=== PATIENT | male | born 1955 | race Caucasian/White ===

== ENCOUNTER 2019-12-12 13:01 | Observation (INO) ==
[2019-12-12] MEDS ORDERED: ASPIRIN PO ONE (13:04)
[2019-12-12] MEDS ORDERED: LANOXIN ONE (13:15)
[2019-12-12] MEDS ORDERED: NS 1,000 ML IV ONE (13:22)
[2019-12-12] MEDS ORDERED: LANOXIN IV ONE (13:23)
[2019-12-12 13:36] LABS: BASO# 0.04 X1000 (0.0-0.2); BASO% 0.3 % (0.0-0.8); EOS# 0.17 X1000 (0.0-0.7); EOS% 1.1 % (0.0-10.0); HEMATOCRIT 46.3 % (42.0-52.0); HEMOGLOBIN 15.1 g/dL (14.0-18.0); IMM GRAN# 0.03 X1000 (0.0-0.04); IMM GRAN% 0.2 % (0.0-0.5); LYMPH# 2.15 X1000 (1.2-3.4); LYMPH% 14.1 % (20.5-51.1); MCH 31.9 PG (27-31); MCHC 32.6 g/dL (33-37); MCV 97.7 FL (81-99); MONO# 1.11 X1000 (0.11-0.59); MONO% 7.3 % (1.7-9.3); MPV 10.9 FL (7.4-10.4); NEUT# 11.72 X1000 (1.4-6.5); PLT 229 X1000 (130-400); RBC 4.74 XMIL (4.7-6.1); WBC 15.22 X1000 (4.8-10.8)
[2019-12-12 13:51] LABS: AGAP 11; ALBUMIN 4.2 g/dL (3.5-5.0); ALKALINE PHOSPHATASE 54 U/L (32-122); BUN 25 mg/dL (8-22); CALCIUM 9.3 mg/dL (8.8-10.2); CHLORIDE 101 mmol/L (98-107); CK PROFILE 75 U/L (24-204); COSMO 286; CREATININE 1.2 mg/dL (0.7-1.2); ESTIMATED GFR > 60; GLUCOSE 96 mg/dL (70-104); GOT 16 U/L (10-34); GPT 13 U/L (10-44); POTASSIUM 4.2 mmol/L (3.5-5.1); SODIUM 141 mmol/L (136-145); TCO2 29 mmol/L (25-35)
--- NOTE | 2019-12-12 14:14 | Diag Imaging Result Doc PS360 ---
EXAM: CHEST-PORTABLE HISTORY: chest pain TECHNIQUE: Single view COMPARISON: 12/18/2015 FINDINGS: The lungs are well expanded. The heart is not enlarged. The vessels are not distended. There are increased interstitial markings in the right upper lobe. No effusion identified. IMPRESSION: Small right upper lobe pneumonia Electronically signed by Wing Menjivar 12/12/2019 2:12 PM
[2019-12-12] MEDS ORDERED: ROCEPHIN 1 GM in NS 50 ML IV ONE (14:30)
--- NOTE | 2019-12-12 15:34 | EKG Report ---
Test Performed on : 12/12/2019 1:41:48 PM Test Reason : chest pain Blood Pressure : / mmHG Vent. Rate : 057 BPM Atrial Rate : 057 BPM P-R Int : 246 ms QRS Dur : 116 ms QT Int : 432 ms P-R-T Axes : 107 -10 008 degrees QTc Int : 420 ms Sinus bradycardia. with 1st degree AV block. Incomplete right bundle branch block Possible Lateral infarct (cited on or before 17-JUN-2010) Inferior infarct (cited on or before 17-JUN-2010) Abnormal ECG When compared with ECG of 12-DEC-2019 13:08, (Unconfirmed) NV interval has increased Vent. rate has decreased BY [address] no longer depressed in Anterior leads T wave inversion no longer evident in Anterior leads Unconfirmed Result
--- NOTE | 2019-12-12 15:44 | EKG Report ---
Test Performed on : 12/12/2019 1:08:47 PM Test Reason : ER Blood Pressure : / mmHG Vent. Rate : 151 BPM Atrial Rate : 131 BPM P-R Int : 000 ms QRS Dur : 116 ms QT Int : 324 ms P-R-T Axes : 000 -04 -17 degrees QTc Int : 513 ms Supraventricular tachycardia. Incomplete right bundle branch block Lateral infarct (cited on or before 17-JUN-2010) Inferior infarct (cited on or before 17-JUN-2010) Abnormal ECG When compared with ECG of 18-DEC-2015 15:00, Vent. rate has increased BY [address] now depressed in Anterior leads Inverted T waves have replaced nonspecific T wave abnormality in Inferior leads Nonspecific T wave abnormality no longer evident in Lateral leads Unconfirmed Result
[2019-12-12] MEDS ORDERED: ZOFRAN IV PRN (15:48)
[2019-12-12] MEDS ORDERED: TYLENOL PO PRN (15:48)
[2019-12-12] MEDS ORDERED: ROCEPHIN 1 GM in NS 50 ML IV SCH (15:48)
[2019-12-12] MEDS ORDERED: XOPENEX NEB INH PRN (15:48)
--- NOTE | 2019-12-12 15:49 | HISTORY AND PHYSICAL ---
PRIMARY CARE PROVIDER: Dr. Stearns. HISTORY OF PRESENT ILLNESS: Mr. Parker is a 64-year-old gentleman who carries a past medical history of CVA and an KS, status post 2 stents 10 years ago that required him to have a prolonged course in the hospital. He had a tracheostomy with removal as well as a PEG tube with removal. Since that time, he has been on a pureed diet, and is supposed to be drinking Ensure. However, due to the cost, he only drinks it when it is given to him by his PCP. 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 He has had an eye infection in that n eye for almost 2 years. He is on numerous eyedrops as well as other medications. He is also on acyclovir for that. There is a reported history of COPD, however, the patient denies any. He is not on any home O2. He was a remote smoker and quit years ago. Hyperlipidemia reported to the ED with complaints of chest pain 30 minutes prior to his arrival. Upon arrival to the ED, they reported he was in atrial fibrillation with RVR. He was given IV dose of digoxin. Spoke with Dr. Turner. The patient will be transferred to [facility]. He was also found to have a small right upper lobe pneumonia. He reports no cough than his usual. No fever. No chills. No shortness of breath. He alternates this between constipation and diarrhea, that is his norm. His pain is currently resolved. He also reported some hypotension prior to his arrival. He did have a blood pressure 84/59. Again, he will be transferred to [facility] and PCV to follow up with Dr. Turner. We will continue treatment for his pneumonia. PAST MEDICAL HISTORY: 1. Reported COPD. Patient denies. 2. Coronary artery disease status post stents. 3. CVA 10 years ago. 4. Hyperlipidemia. 5. 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 PAST SURGICAL HISTORY: 1. Trach placement and removal after his KS and CVA that occurred at the same time 10 years ago, status post 2 stents, status post PEG insertion and removal at the same time. 2. Right cornea transplant from his daughter who is . 3. Cholecystectomy. SOCIAL HISTORY: Remote tobacco history. No alcohol, tobacco, or illicit drug use. He is currently on a pureed diet, supposed to be drinking Ensure, likes strawberry and vanilla. ALLERGIES: No known drug allergies. MEDICATIONS: Home medications are being compiled. He is on Eliquis, Flexeril, Prilosec, acyclovir, numerous eyedrops and cream, statin, metoprolol, lisinopril, and Flomax. REVIEW OF SYSTEMS: Twelve-point review of systems completely negative except for those mentioned in HPI. PHYSICAL EXAMINATION: VITAL SIGNS: Temperature is 98. Current heart rate 68, respirations 16, blood pressure 100/73, and O2 is 100% on room air. GENERAL: Mr. Parker is a pleasant 64-year-old gentleman who is sitting in the stretcher in no acute distress. HEENT: Atraumatic, normocephalic. PERRL. He does have right eye infection. CARDIOVASCULAR: S1, S2 appreciated. No murmurs, gallops, or rubs noted. RESPIRATORY: Lung sounds relatively clear. No rales, rhonchi, or wheezes noted. ABDOMEN: Soft, nontender, and nondistended. Positive bowel sounds 4 quadrants. EXTREMITIES: Lower extremities negative for edema. NEUROLOGIC: No focal deficits noted. DIAGNOSTIC DATA: Chest x-ray with right upper lobe pneumonia. LABORATORY DATA: White count 15, hemoglobin and hematocrit 15 and 46, and platelet count is 229,000. Sodium 141, potassium 4.2, BUN 25, and creatinine 1.2. Blood glucose is 96. Troponin 21. ProBNP is 194. ASSESSMENT AND PLAN: 1. Chest pain rule out. 2. Reported atrial fibrillation with RVR in the ED. He was given a dose of digoxin. Currently, in sinus rhythm. He reports he is on metoprolol and Eliquis for an irregular heart rhythm. 3. Probable aspiration pneumonia, right upper lobe pneumonia. We will continue with Levaquin. Slight elevated white count at 15. Denies any fevers. He does report a cough, but did not feel it was any more than his usual. 4. Hypotension at home and upon arrival. Blood pressure came up with a L bolus. We will continue on IV fluids. 5. CVA 10 years ago as well as coronary artery disease status post KS x2. These both occurred at the same time that required him to get 2 stents. Trach insertion as well as a PEG tube. He is currently on a pureed diet. He is supposed to be drinking Ensure. He prefers strawberry and vanilla. Chocolate will make him choke. 6. Hyperlipidemia. Continue statin when verified. 7. Right corneal transplant with eye infection x2 years. Continue acyclovir and numerous drops and creams when verified. 8. Further recommendations to follow physician evaluation, laboratory and diagnostic data. Dictated by INES Mae for Pepe Magaña MD cc: MD Dr. Jinny Mujica
--- NOTE | 2019-12-12 16:00 | PROVIDER DOCUMENTATION ---
This chart was entered by Vanessa Plaza Scribe, acting as scribe for Rose Knight CRNP. HPI-Chest Pain <Elliot Khan - Last Filed: 12/12/19 14:30> - General Source: patient - History of Present Illness-CP Location: reports: other (left anterior) Chest Pain Radiation: reports: no radiation Quality of Pain: reports: sharp Severity in ED: moderate Onset/Duration: 1 hour ago Timing: gone now, intermittent Context/Activities at Onset: reports: light activity Modifying Factors: improves with: nothing Associated Symptoms: reports: shortness of breath. denies: back pain, diaphoresis, dizziness, fever/chills, nausea, vomiting Nitro Today/Relief: no nitro taken today Aspirin Treatment Today: 325 mg x 1, provided by ED Prior Chest Pain/Cardiac Workup: reports: heart attack Similar Symptoms Previously?: Yes Recently Seen Here or By Another Healthcare Provider: No (PMD dr betancourt but has not seen) <Rose Knight - Last Filed: 12/12/19 16:00> - General Chief Complaint: Chest Pain Stated Complaint: CHEST PAIN Time Seen by Provider: 12/12/19 13:07 Allergies/Adverse Reactions: Patient Allergies Allergy/AdvReac Type Severity Reaction Status Date / Time No Known Allergies Allergy Verified 08/05/18 12:58 Home Medications: Home Medication List Medication Instructions Recorded Confirmed Last Taken Type LISINOpril [Prinivil] 2.5 mg PO DAILY 08/06/13 08/05/18 07/28/14 06:00 History Metoprolol [Lopressor] 12.5 mg PO BID 09/14/13 08/05/18 07/28/14 06:00 History Atorvastatin Calcium [Lipitor] 40 mg PO QHS 12/18/15 08/05/18 12/17/15 History Apixaban [Eliquis] 5 mg PO BID 08/05/18 08/05/18 Unknown History - History of Present Illness-CP Nature of Presenting Problem: 64 yowm presents to the ed with c/o acute onset sharp intermittent CP 45 minuted [employer] with sob. he reports on exam all pain has resolved but does present with HR 145/155. pt reports he did not take his BP medication today but took all other medications (Rose Knight) Review of Systems - Adult - REVIEW OF SYSTEMS - ADULT Constitutional: denies: chills, fever Eyes: reports: no symptoms reported Ears, Nose, Mouth & Throat: reports: no symptoms reported Cardiovascular: reports: see HPI, chest pain. denies: edema, palpitations, syncope Respiratory: reports: see HPI, shortness of breath. denies: cough, wheezing Gastrointestinal: denies: abdominal pain, diarrhea, nausea, vomiting Genitourinary: reports: no symptoms reported Musculoskeletal: denies: back pain, neck pain Integumentary: reports: no symptoms reported Neurological: reports: no symptoms reported Psychiatric: reports: no symptoms reported Endocrine: reports: no symptoms reported Hematologic/Lymphatic: reports: no symptoms reported Allergic/Immunologic: reports: no symptoms reported All Other Systems: Reviewed and Negative < - Last Filed: 12/12/19 16:00> Past History - Adult - PAST MEDICAL HISTORY-ADULT Review of Records: reports: Old Records Reviewed, Nursing Assessment Review, Medications Reviewed, Social history reviewed & non-contributory. Major Childhood Illnesses: reports: denies history Cardiovascular: reports: arrhythmia (SVT), CAD, CHF, HTN, MO Respiratory: reports: pneumonia Gastrointestinal: reports: denies history Genitourinary: reports: kidney disease Musculoskeletal: reports: denies history Neurological: reports: CVA, stroke deficits (left side) Psychiatric: reports: denies history Endocrine/Immune: reports: denies history Other Conditions: reports: denies history - PRIOR SURGERIES/PROCEDURES Surgical/Procedure History: reports: cholecystectomy, other (feeding tube) - IMMUNIZATION STATUS Childhood Immunizations: See Nurse Assessment Flu Vaccine: See Nurse Assessment - FAMILY HISTORY Family History: reviewed, not pertinent - SOCIAL HISTORY Smoking: denies Substance Use: denies Living Situation: alone < C. - Last Filed: 12/12/19 16:00> Physical Exam-General - PHYSICAL EXAM-ADULT Initial Vital Signs Reviewed: Yes - CONSTITUTIONAL General Appearance: appears well, alert, no apparent distress (pt sts cp has resolved and denies pain on exam. pt is nontoxic in appearance) - EYES Eyes: PERRL/EOMI - HEAD, EARS, NOSE, MOUTH & THROAT HENMT: moist mucous membranes, other (no teeth) - NECK Neck: non-tender, full range of motion, supple, normal inspection - RESPIRATORY Respiratory: chest non-tender, lungs clear, normal breath sounds - CARDIOVASCULAR Cardiovascular: tachycardia (145) - CHEST (BREASTS) Chest/Breast: deferred - GASTROINTESTINAL (ABDOMEN) Abdominal Exam: normal bowel sounds, non tender, soft - GENITOURINARY Male Genitalia: deferred Rectal Exam: deferred Hemoccult Exam: deferred - LYMPHATIC Lymphatic: no adenopathy - MUSCULOSKELETAL Back Exam: no CVA tenderness, no vertebral tenderness Extremity: normal range of motion, non-tender, normal gait, normal inspection - SKIN Integumentary: normal turgor, warm/dry, cyanosis (in fingers) - NEUROLOGIC Neurologic: grossly normal - PSYCHIATRIC Psych/Mental Status: normal mood/affect, normal thought content, normal thought process, oriented x 3 <Rose Knight - Last Filed: 12/12/19 16:00> - HEART Score HEART Score: History: Slightly Suspicious HEART Score: ECG: Non-Specific Repolarization Disturbance/LBBB/PM HEART Score: Age: 45-65 Years HEART Score: Risk Factors for Atherosclerotic Disease: > or = 3 Risk Factors or History of Atherosclerotic Disease HEART Score: Troponin: < or = Normal Limit Total HEART Score:: 4 <Rose Knight - Last Filed: 12/12/19 16:00> Progress - PLAN OF CARE/RESULTS Result Diagrams: 12/12/19 13:13 12/12/19 13:13 <Elliot Khan - Last Filed: 12/12/19 14:30> - PLAN OF CARE/RESULTS Result Diagrams: 12/12/19 13:13 12/12/19 13:13 - REASSESSMENT Reassessment #1 Time Reassessed: 13:47 Status: improving Reassessment Comment: dr khan at bedside - EKG 1 Time of EKG reading by physician:: 13:08 EKG Read and Signed by:: Elliot Khan EKG Interpretation (*Must complete 3 of following elements*): Abnormal Rate: 151 Rhythm: supraventricular tachycardia QRS: RBB (incomplete RBB) NC Interval: normal ST Wave: normal Comments: lateral/inferior infarct, age undetermined 2 Time of EKG reading by physician:: 13:41 EKG Read and Signed by:: Elliot Khan EKG Interpretation (*Must complete 3 of following elements*): Abnormal Rate: 57 Rhythm: sinus bradycardia w/1st degree av block Nichols: normal QRS: RBB (incomplete RBB) NC Interval: normal ST Wave: normal Comments: poss lateral infarct/inferior infarct, age undetermined on both - XRAY 1 XRAY: Bilateral XRAY Study: Chest Impression: See EMR Report (IMPRESSION: Small right upper lobe pneumonia Electronically signed by Wing Menjivar 12/12/2019 2:12 PM) - CONSULTS/PCP/HOSPITALIST Notification #1 *Consult/PCP/Hospitalist*: dr austin cardio Time Discussed: 13:32 Reason/Comments: phone consult #2 Consult: dr castañeda hospitalist Consult Disposition: Will see in ED, Admit <Rose Knight - Last Filed: 12/12/19 16:00> - PLAN OF CARE/RESULTS Progress/Plan/Lab Results: Vital Signs - 8 hr 12/12/19 13:05 12/12/19 13:24 12/12/19 13:41 Temperature 98 F Pulse Rate 107 H 150 H 68 Respiratory Rate 18 17 Blood Pressure 84/59 100/73 O2 Sat by Pulse Oximetry 97 100 Laboratory Results - last 24 hr 12/12/19 12/12/19 12/12/19 13:13 13:13 13:13 WBC RBC Hgb Hct MCV MCH MCHC RDW Std Deviation Plt Count MPV Immature Gran % (Auto) Neut % (Auto) Lymph % (Auto) [place] % (Auto) Eos % (Auto) Baso % (Auto) Immature Gran # (Auto) Neut # (Auto) Lymph # (Auto) [place] # (Auto) Eos # (Auto) Baso # (Auto) PTT (Actin FS) Sodium 141 Potassium 4.2 Chloride 101 Carbon Dioxide 29 Anion Gap 11 BUN 25 H Creatinine 1.2 Estimated GFR/1.73 m2 > 60 BUN/Creatinine Ratio 21 Glucose 96 Calculated Osmolality 286 Calcium 9.3 Total Bilirubin 0.30 AST 16 ALT 13 Alkaline Phosphatase 54 Creatine Kinase 75 Troponin T High Sens 21 H Mck-L-Tquhsksuwlh Pept 194 H Total Protein 7.0 Albumin 4.2 Globulin 3.0 Albumin/Globulin Ratio 2.0 Plasma Lactate 12/12/19 12/12/19 12/12/19 13:13 13:13 13:40 WBC 15.22 H RBC 4.74 Hgb 15.1 Hct 46.3 MCV 97.7 MCH 31.9 H MCHC 32.6 L RDW Std Deviation 12.0 Plt Count 229 MPV 10.9 H Immature Gran % (Auto) 0.2 Neut % (Auto) 77.0 H Lymph % (Auto) 14.1 L [place] % (Auto) 7.3 Eos % (Auto) 1.1 Baso % (Auto) 0.3 Immature Gran # (Auto) 0.03 Neut # (Auto) 11.72 H Lymph # (Auto) 2.15 [place] # (Auto) 1.11 H Eos # (Auto) 0.17 Baso # (Auto) 0.04 PTT (Actin FS) 31.4 Sodium Potassium Chloride Carbon Dioxide Anion Gap BUN Creatinine Estimated GFR/1.73 m2 BUN/Creatinine Ratio Glucose Calculated Osmolality Calcium Total Bilirubin AST ALT Alkaline Phosphatase Creatine Kinase Troponin T High Sens Irl-P-Birelrczevc Pept Total Protein Albumin Globulin Albumin/Globulin Ratio Plasma Lactate 1.4 Orders Category Date Time Status Admit - [facility] Routine AdmDCTranf 12/12/19 15:48 Active Apply Mechanical Device [QM] ORDERED Care 12/12/19 15:48 Active Cardiac Monitoring DIRECTED Care 12/12/19 13:08 Active Elevate Head of Bed DIRECTED Care 12/12/19 15:48 Active Encourage Fluids DIRECTED Care 12/12/19 15:48 Active Intake and Output-Strict Q 8-HR ASSESS Care 12/12/19 15:48 Active NEWS Score 2-4:Order NEWS Lactate Series NOW Care 12/12/19 13:07 Active Notify MD if DIRECTED Care 12/12/19 15:48 Active Nursing- Assist w/ IS as order ORDERED Care 12/12/19 15:48 Active Nursing- MD Consult Request ROUTINE Care 12/12/19 15:48 Completed Oxygen Therapy- ED Nursing DIRECTED Care 12/12/19 13:08 Active Saline Loc DIRECTED Care 12/12/19 15:48 Active Saline Loc NOW Care 12/12/19 13:08 Active Turn, Cough and Deep Breathe Q2HR Care 12/12/19 15:48 Active Vital Signs Order Q 4-HR ASSESS Care 12/12/19 15:48 Active Z-Document. for Tele Applied ORDERED Care 12/12/19 15:48 Active MD [Physician/Provider Consults] Routine Cons 12/12/19 15:48 Ordered Heart Healthy Diet Diet 12/12/19 15:49 Active CHEST-PORTABLE [RAD] Routine Exams 12/13/19 06:00 Ordered CHEST-PORTABLE [RAD] Stat Exams 12/12/19 13:08 Completed BLOOD CULTURE [BLDCUL] Stat Lab 12/12/19 14:30 Ordered CBC WITH ELECTRONIC DIFF [HEME] Routine Lab 12/13/19 06:00 Ordered CBC WITH ELECTRONIC DIFF [HEME] Stat Lab 12/12/19 13:13 Completed CK PROFILE [SP CHEM] Q8H Lab 12/12/19 15:48 Ordered CK PROFILE [SP CHEM] Q8H Lab 12/12/19 23:48 Ordered CK PROFILE [SP CHEM] Q8H Lab 12/13/19 07:48 Ordered CK PROFILE [SP CHEM] Stat Lab 12/12/19 13:13 Completed CK TOTAL [CHEM] Q8H Lab 12/12/19 15:48 Ordered CK TOTAL [CHEM] Q8H Lab 12/12/19 23:48 Ordered CK TOTAL [CHEM] Q8H Lab 12/13/19 07:48 Ordered COMPREHENSIVE METABOLIC PANEL [CHEM] Routine Lab 12/13/19 06:00 Ordered COMPREHENSIVE METABOLIC PANEL [CHEM] Stat Lab 12/12/19 13:13 Completed LACTATE, PLASMA [CHEM] Lab 12/12/19 16:45 Uncollected LACTATE, PLASMA [CHEM] Lab 12/12/19 19:45 Uncollected LACTATE, PLASMA [CHEM] Q3H Lab 12/12/19 13:40 Completed MAGNESIUM [CHEM] Routine Lab 12/12/19 15:48 Ordered PRO B-NATRIURETIC PEPTIDE Stat Lab 12/12/19 13:13 Completed PROTIME WITH INR [COAG] Stat Lab 12/12/19 13:28 Ordered PTT [COAG] Stat Lab 12/12/19 13:13 Completed SPUTUM CULTURE WITH GRAM STAIN [RM] Routine Lab 12/12/19 15:48 Uncollected TROPONIN T HIGH SENSITIVITY Q8H Lab 12/12/19 15:48 Ordered TROPONIN T HIGH SENSITIVITY Q8H Lab 12/12/19 23:48 Ordered TROPONIN T HIGH SENSITIVITY Q8H Lab 12/13/19 07:48 Ordered TROPONIN T HIGH SENSITIVITY Stat Lab 12/12/19 13:13 Completed 0.9% Sodium Chloride Inj [Ns] 1,000 ml Med 12/12/19 15:48 Ordered IV 75 mls/hr 0.9% Sodium Chloride Inj [Ns] 1,000 ml Med 12/12/19 13:22 Discontinued IV 999 mls/hr Acetaminophen [Tylenol] Med 12/12/19 15:48 Ordered 650 mg PO Q6H PRN PRN Aspirin Med 12/12/19 13:04 Discontinued 325 mg PO NOW ONE CefTRIAXONE [Rocephin] 1 gm Med 12/12/19 14:30 Discontinued 0.9% Sodium Chloride Inj [Ns] 50 ml IV NOW CefTRIAXONE [Rocephin] 1 gm Med 12/12/19 15:48 Ordered 0.9% Sodium Chloride Inj [Ns] 50 ml IV Q24H CefTRIAXONE [Rocephin] 1 gm Med 12/13/19 14:30 Ordered 0.9% Sodium Chloride Inj [Ns] 50 ml IV Q24H Digoxin [Lanoxin] Med 12/12/19 13:23 Discontinued 250 microgm IV ONCE ONE Digoxin [Lanoxin] Med 12/12/19 13:15 Discontinued 500 microgm .ROUTE .STK-MED ONE Levalbuterol Neb [Xopenex Neb] Med 12/12/19 16:00 Ordered 0.63 mg INH RTQ6H.OH Levalbuterol Neb [Xopenex Neb] Med 12/12/19 15:48 Ordered 1.25 mg INH Q8H PRN PRN Omeprazole [Prilosec] Med 12/13/19 07:00 Ordered 20 mg PO DAILY@0700 Ondansetron [Zofran] Med 12/12/19 15:48 Ordered 4 mg IV Q4H PRN PRN Aerosol Treatments Routine Oth 12/12/19 15:48 Active Aerosol Treatments Stat Oth 12/12/19 15:48 Active Incentive Spirometer Routine Oth 12/12/19 15:48 Active Oxygen Device Stat Oth 12/12/19 13:23 Active Pulse Oximetry Routine Oth 12/12/19 15:48 Active Telemetry [OM.EQ] Routine Oth 12/12/19 15:48 Active EKG [EKG] Routine Ther 12/13/19 07:00 Ordered EKG [EKG] Stat Ther 12/12/19 13:08 Draft Echo Spec/Color Doppler Routine Ther 12/12/19 15:48 Ordered Transfer/Admit Order [TRANSFER] Routine Transfer 12/12/19 14:07 Completed Departure - Departure Certified Medical Emergency: Emergent <Elliot Khan - Last Filed: 12/12/19 14:30> - Departure Date of Disposition Decision: 12/12/19 Time of Disposition Decision: 15:25 Certified Medical Emergency: Emergent - Critical Care Note This patient required my direct & personal management of CC.: Yes Total Time (mins): 34 Critical Care Statement: This patient required my direct personal management to treat or rule out processes, the absence of which, could potentiallly result in sudden, clinically significant life or limb threatening deterioration. <Rose Knight - Last Filed: 12/12/19 16:00> - Departure DIAGNOSIS: Supraventricular tachycardia PNA (pneumonia) Qualifiers: Pneumonia type: due to unspecified organism Laterality: right Lung location: upper lobe of lung Qualified Code(s): J18.1 - Lobar pneumonia, unspecified organism Disposition: ADMITTED INPATIENT 09 Condition: Stable Attestation - Physician/ KATLYN Attestation Patient care was provided by Advanced Practice Provider:: Yes Advanced Practice Provider:: Rose Knight Advanced Practice Provider documentation review:: The Mid-level provider documentation, treatment plan and medical decision making was reviewed by the physician who agrees with all treatment and medical decision making by the MLP. The physician spent face to face time with patient:: Yes (dr khan at bedside) Advanced Practice Provider documentation review:: Supervising physician onsite and consulted in the evaluation and care of this patient. The physician did have a face to face encounter with the patient. <Rose Knight - Last Filed: 12/12/19 16:00> This chart was documented by the indicated scribe, (aVnessa Plaza Scribe) and accurately reflects the services I performed and decisions made by , Rose Knight CRNP, as attested by the provider's signature.
--- NOTE | 2019-12-12 16:10 | HISTORY AND PHYSICAL ---
ADDENDUM REPORT Patient seen and examined by myself. Full note dictated and discussed with nurse practitioner. The patient presented to the hospital with low blood pressure. Subsequently diagnosed with pneumonia and sepsis. We will place him in the hospital for antibiotics and will follow. cc: Pepe Magaña MD
[2019-12-12 16:34] LABS: MAGNESIUM 1.9 mg/dL (1.5-2.7)
[2019-12-12] MEDS: NS 1,000 ML IV SCH (17:00)
[2019-12-12] MEDS ORDERED: LEVAQUIN 500 MG/D5W 500 MG/100 ML IVPB IV SCH (17:00)
--- NOTE | 2019-12-12 18:16 | ECHO REPORT ---
ORDER DATE: 12/12/2019 INDICATION: Atrial fibrillation, stroke. M-MODE MEASUREMENTS: Left ventricle end diastole: 4.3. Left ventricle end systole: 2.7. Posterior wall: 1.0. Interventricular septum: 1.0. Left atrium: 3.7. Aortic diameter: 4.3. SUMMARY OF 2-DIMENSIONAL IMAGIN. Left ventricular function is normal. Ejection fraction is estimated at 71%. There is a question of a focal basal inferior area of akinesis. 2. The right ventricle is normal. 3. The aortic valve is normal. Color flow mapping unremarkable. 4. The mitral valve is normal. Color flow mapping unremarkable. 5. Pulse wave Doppler of mitral inflow shows reversal of the E/A ratio. The ratio is 0.6. 6. Tissue Doppler of septal and lateral mitral annulus averages 5 cm. There is impaired left ventricular relaxation. 7. The pulmonic valve looks normal. Color flow mapping unremarkable. 8. The tricuspid valve shows a mild degree of regurgitation. The inferior vena cava is not well visualized in this case. Pulmonary pressure is estimated at 23 to 23 mmHg. 9. There is no pericardial effusion, no mass, and no thrombus. SUMMARY: This study shows: 1. Normal left ventricular systolic function. 2. Impaired left ventricular relaxation. 3. Normal pulmonary pressure. 4. Normal aortic, mitral, pulmonic and tricuspid valves. 5. There is a question of a focal basal inferior area of akinesis that could indicate a focal basal inferior scar. Clinical correlation recommended. cc: Jurgen Rosales MD
--- NOTE | 2019-12-12 19:34 | CONSULTATION ---
DATE OF CONSULTATION: 12/12/2019 IMPRESSION: 1. Episode of supraventricular tachycardia, possibly atrial flutter with rapid ventricular rate at a heart rate of 150 beats per minute, with associated near syncope. Patient spontaneously converted back to sinus bradycardia after intravenous digoxin 0.25 mg. He had what sounds like a prior episode of similar symptomatology about 10 days ago. 2. Previous atrial tachyarrhythmias in the past. 3. Atherosclerotic coronary artery disease. Patient is status post previous myocardial infarction, inferior by electrocardiogram, and is status post coronary angioplasty/stenting approximately 10 years ago in [place]. He continues without angina. 4. Status post cerebrovascular accident approximately 10 years ago. 5. Chronic obstructive pulmonary disease. 6. Hyperlipidemia. 7. Previous cigarette use discontinued more than 10 years ago. 8. Possible right upper lobe pneumonia, although clinical presentation and chest x-ray are not very impressive. He does have leukocytosis. RECOMMENDATIONS: 1. Continue beta luis which currently is at low dose. If heart rate increases and FL interval shortens after digoxin washes out, may consider increasing dose to 25 mg p.o. b.i.d. 2. Continue anticoagulation. 3. Follow up echocardiography. 4. PA and lateral chest x-ray. 5. The patient would ultimately benefit from arrhythmia/electrophysiology consultation to consider the possibility of ablation, which may prove more useful given his tendency for bradycardia already evident. At some point, he may require permanent pacemaker. 6. Ultimately, patient would also benefit from reassessment of his coronary disease with Lexiscan myocardial perfusion study. This certainly could be pursued as an outpatient. HISTORY: This 64-year-old white male, with past history of atherosclerotic coronary disease, previous myocardial infarction, inferior by ECG, previous coronary angioplasty/stenting approximately 10 years ago, previous cerebrovascular accident, COPD, and hyperlipidemia as well as previous atrial tachyarrhythmia in the past, was admitted through the emergency room at [facility] after he presented with near-syncope. He was found to be in what appears to have been supraventricular tachycardia, possibly atrial flutter, with rapid ventricular rate. He was given intravenous digoxin 0.25 mg. He subsequently spontaneously converted back to sinus rhythm and his symptoms improved. He does describe some shooting, fleeting, sharp, sticking chest pain. He has chronic cough productive of white sputum. He is not aware of any fever. Chest x-ray was interpreted as showing small right upper lobe pneumonia, and he has been started on antibiotic therapy. He relates a similar episode of lightheadedness/seeing spots about 10 days ago which resolved prior to his visit with his physician. He was advised to go the emergency room the next time this happened, which is exactly what he did. He has a history of previous cigarette use, which has been quite limited, but discontinued this approximately 13 years ago. He has hyperlipidemia and a family history of early coronary atherosclerosis. He has not had cardiology followup in some time now. He continues without angina and describes fairly typical angina with his previous myocardial infarction. PAST MEDICAL HISTORY: 1. Atherosclerotic coronary disease with history of previous myocardial infarction 10 years ago, with coronary angioplasty/stenting. Current ECG suggest previous inferior infarction. 2. Status post cerebrovascular accident. He has limited residual. He has some difficulty swallowing certain foods and still has some potential for aspiration. He had PEG tube and tracheostomy in the past, but these have been removed several years ago. 3. Chronic obstructive pulmonary disease. 4. Hyperlipidemia. 5. Status post right corneal transplant. PAST SURGICAL HISTORY: 1. Tracheostomy following his cerebrovascular accident. 2. PEG tube placement following cerebrovascular accident. 3. Right corneal transplant. 4. Cholecystectomy. ALLERGIES: He has no known drug allergies. MEDICATIONS PRIOR TO ADMISSION: As listed. It is noteworthy he has been on long-term anticoagulation with Eliquis. SOCIAL HISTORY: He quit smoking 13 years ago and previously smoked no more than a pack a week. He does not use alcohol. FAMILY HISTORY: Positive for early coronary disease. REVIEW OF SYSTEMS: Pulmonary: Noncontributory beyond History of Present Illness. Gastrointestinal: Noncontributory beyond History of Present Illness. Constitutional: Noncontributory beyond History of Present Illness. Remainder of review of systems negative/noncontributory beyond History of Present Illness with 14 total systems reviewed. PHYSICAL EXAMINATION: General: A thin older white male in no distress. Patient appears older than stated age. Vital signs: Blood pressure 100/70, heart rate 59, oxygen saturation 99% on nasal cannula oxygen. HEENT: Extraocular movements intact. Mucous membranes are moist. Neck: Supple without jugular distention. There are no carotid bruits. Chest: Auscultation of the chest reveals a few faint expiratory rhonchi. There are no rales. Cardiac: Reveals a regular rate and rhythm without appreciable murmur or gallop. Abdomen: Soft. Bowel sounds are normal. Extremities: Without edema. Neurologic: Reveals him to be alert and fully oriented. Speech is fluent. He moves all 4 extremities equally well. Initial 12 lead EKG demonstrates supraventricular tachycardia and possible atrial flutter with 2:1 AV conduction and a heart rate of 150 beats per minute. Inferior infarct of undetermined age demonstrated. Incomplete right bundle branch block demonstrated. Repeat ECG after patient converted back to sinus rhythm demonstrates sinus bradycardia with first degree AV block, an incomplete right bundle branch block, and inferior infarct of undetermined age. Laboratory data includes a white blood cell count of 15.22, hematocrit 46.3, hemoglobin 15.1 platelet count 229,000. Sodium 141, potassium 4.2, chloride 101, carbon dioxide 29, BUN 25, creatinine 1.2, glucose 96. CPK 64. Troponin T high sensitivity 21. Pro B-natriuretic peptide level 194. Chest x-ray is reviewed and is a portable x-ray. Cardiac silhouette is upper normal in size. I cannot appreciate any acute infiltrate. cc: Lester Chaidez MD
[2019-12-12 20:51] LABS: INR 1.06; PROTIME 14.3 Seconds (11.0-16.0)
[2019-12-13] MEDS: XOPENEX NEB INH SCH ×2 (00:08→10:23)
[2019-12-13] MEDS: PRILOSEC PO SCH ×2 (05:25→07:55)
[2019-12-13] MEDS: NS 1,000 ML IV SCH (05:26)
[2019-12-13 06:19] LABS: BASO# 0.02 X1000 (0.0-0.2); BASO% 0.3 % (0.0-0.8); EOS# 0.16 X1000 (0.0-0.7); EOS% 2.6 % (0.0-10.0); HEMATOCRIT 39.5 % (42.0-52.0); LYMPH# 1.65 X1000 (1.2-3.4); LYMPH% 27.1 % (20.5-51.1); MCH 32.5 PG (27-31); MCHC 32.9 g/dL (33-37); MCV 98.8 FL (81-99); MONO# 0.48 X1000 (0.11-0.59); MONO% 7.9 % (1.7-9.3); MPV 10.9 FL (7.4-10.4); NEUT# 3.78 X1000 (1.4-6.5); NEUT% 62.1 % (42.2-75.2); PLT 168 X1000 (130-400); RDW 12.3 % (11.5-14.5); WBC 6.09 X1000 (4.8-10.8)
[2019-12-13 06:55] LABS: AGAP 8; ALB/GLOB RATIO 1.3; ALBUMIN 3.2 g/dL (3.5-5.0); ALKALINE PHOSPHATASE 43 U/L (32-122); BUN 22 mg/dL (8-22); CALCIUM 8.4 mg/dL (8.8-10.2); CHLORIDE 107 mmol/L (98-107); COSMO 282; CREATININE 0.8 mg/dL (0.7-1.2); ESTIMATED GFR > 60; GLUCOSE 93 mg/dL (70-104); GOT 12 U/L (10-34); GPT 9 U/L (10-44); POTASSIUM 4.4 mmol/L (3.5-5.1); SODIUM 140 mmol/L (136-145); TCO2 25 mmol/L (25-35); TOTAL BILIRUBIN 0.41 mg/dL (0.20-1.00); TOTAL PROTEIN 5.7 g/dL (6.3-8.3)
--- NOTE | 2019-12-13 07:27 | EKG Report ---
Test Performed on : 12/13/2019 06:54:24 AM Test Reason : afib Blood Pressure : / mmHG Vent. Rate : 051 BPM Atrial Rate : 051 BPM P-R Int : 310 ms QRS Dur : 120 ms QT Int : 474 ms P-R-T Axes : 024 010 061 degrees QTc Int : 436 ms Sinus bradycardia. with 1st degree AV block. Right bundle branch block Lateral infarct (cited on or before 17-JUN-2010) Inferior infarct (cited on or before 17-JUN-2010) Abnormal ECG When compared with ECG of 12-DEC-2019 13:41, (Unconfirmed) T wave amplitude has decreased in Lateral leads Confirmed by Aron Machado MD ([id number]) on 12/14/2019 5:00:34 PM
--- NOTE | 2019-12-13 07:37 | Diag Imaging Result Doc PS360 ---
EXAM: CHEST-PORTABLE HISTORY: Chest Pain TECHNIQUE: Single view COMPARISON: 12/12/2019 FINDINGS: Development of atelectasis or infiltrates in the right lung base. Small infiltrates in the mid right lung have resolved. The left lung remains well expanded and clear except for scattered granuloma. IMPRESSION: Development of infiltrates or atelectasis in the right lower lobe. Clearing of the right upper lobe infiltrates. Electronically signed by Wing Menjivar 12/13/2019 7:35 AM
[2019-12-13 11:28] VITALS: BP 119/89
--- NOTE | 2019-12-13 12:51 | PROGRESS NOTE ---
DATE: 12/13/2019 SUBJECTIVE: Patient continues without chest discomfort or shortness of breath. He has minimally productive cough. He relates that this is chronic. OBJECTIVE: Blood pressure 118/89 ,heart rate 58 and regular with ECG monitor showing sinus rhythm. There is no significant jugular distention. On auscultation of the chest reveals a few faint scattered rhonchi. Cardiac exam reveals a regular rate and rhythm without appreciable murmur or gallop. There is no evidence of peripheral edema. LABORATORY DATA: Includes a white blood cell count 6.09, hematocrit 39.5, hemoglobin 13.0, platelet count 168,000, sodium 140, potassium 4.4, chloride 107, carbon dioxide 25, BUN 22, creatinine 0.8, glucose 93. Troponin T 19. IMAGING: Twelve-lead EKG demonstrates sinus bradycardia with first degree AV block and right bundle branch block. Inferior infarct of undetermined age demonstrated. IMPRESSION: 1. Recent episode of supraventricular tachycardia, possibly atrial flutter with rapid ventricular rate of 150 beats per minute with associated near-syncope. Patient spontaneously converted back to sinus bradycardia. 2. Continues in sinus bradycardia with first-degree AV block. Suspect element of sinus node dysfunction and conduction system disease as patient's beta-luis has been held. Essentially tachycardia/bradycardia syndrome. 3. Atherosclerotic coronary disease with previous inferior myocardial infarction in the past. Patient continues without angina. 4. Previous cerebrovascular accident. 5. Chronic obstructive pulmonary disease. 6. Hyperlipidemia. 7. Previous cigarette use. Discontinued more than 10 years ago. 8. Questionable pneumonia. Followup chest x-ray shows no right upper lobe infiltrate and what looks like some atelectasis in the right lower lobe. RECOMMENDATIONS: 1. For now leave off beta luis. 2. Continue anticoagulation. 3. Ultimately patient would benefit from electrophysiology/arrhythmia consultation to consider merits of ablation and possibly permanent pacemaker. This was discussed at length with him. He very much wishes to go home and take this up as an outpatient. This is certainly not unreasonable. I advised him that should he have further lightheadedness or palpitations to return to the hospital and possibly be transferred to [facility] for further care. He is also advised not to drive an automobile or climb ladders or place himself in a precarious position until after further management. He acknowledged these and reiterated his preference to go home. I will, therefore, plan on seeing him in our office early in the week on Sunday. cc: Lester Chaidez MD
--- NOTE | 2019-12-13 13:25 | DISCHARGE SUMMARY ---
ADMISSION DATE: 12/12/2019 DISCHARGE DATE: 12/13/2019 ADMISSION AND DISCHARGE DIAGNOSES: 1. Chest pain. 2. Reported atrial fibrillation with rapid ventricular rate in the ED, currently in sinus rhythm. 3. Probable aspiration pneumonia, right upper lobe. 4. Hypotension at home and upon arrival, resolved. 5. Cerebrovascular accident 10 years ago, as well as coronary artery disease and an myocardial infarction x2. 6. Hyperlipidemia. 7. Right corneal transplant with infection x2 years. CONSULTATIONS: Cardiology. SURGERIES/PROCEDURES: None. HOSPITAL COURSE: Mr. Gnaesh Parker is a 64-year-old, male who has been on a pureed diet, drinking Ensure, came in with an ER report of the patient being in atrial fibrillation with rapid ventricular response. He had received some digoxin. Dr. Turner wanted the patient transferred to [facility], also was found to have a right upper lobe pneumonia, but no cough. He was hypotensive upon arrival, but resolved after IV fluid hydration. He is in sinus rhythm. Apparently, there was some associated near-syncope. When he converted from atrial flutter he converted to a sinus bradycardia. Cardiology recommended continuing the beta luis at a low dose and wants to see him in the office next Sunday. They will consider possible workup for a permanent pacemaker. DISCHARGE VITAL SIGNS: Temperature 98 degrees, heart rate 58, respiratory rate 17, blood pressure 119/89, O2 saturation 100% on 2 L nasal cannula. LABORATORY DATA: White blood cells 6,000, hemoglobin 13, hematocrit 39, platelet count 168,000. Sodium 140, potassium 4.4, BUN 22, creatinine 0.8, glucose 93, calcium 8.4, bilirubin 0.41, AST 12, ALT 9, CK 44, troponin 19, proBNP 194, albumin 3.2. IMAGING: Chest x-ray, small right upper lobe pneumonia. Echocardiogram, normal left ventricular systolic function, impaired left ventricular relaxation. Normal pulmonary pressure. Normal aortic, mitral, pulmonic, and tricuspid valves. There is a question of a focal basal inferior area of akinesis, possible scar. Repeat chest x-ray, development of infiltrates or atelectasis in the right lower lobe. There has been clearing of the right upper lobe infiltrates. EKG on discharge, sinus bradycardia with a first-degree AV block, rate 51, QTc is 436. DISCHARGE PHYSICIAN FOLLOWUP: Dr. Chaidez next Sunday, on 12/15/2019, in the office. DISCHARGE INSTRUCTIONS: Follow up with Dr. Chaidez in the office in 2 days, on 12/15/2019. Come in mid morning and tell the staff Dr. Chaidez sent you to be seen. Take all medications as prescribed. Re-present with any recurring symptoms. DISCHARGE DIET: Heart healthy. DISCHARGE ACTIVITY: As tolerated. DISCHARGE MEDICATIONS: 1. Flexeril 10 mg p.o. nightly. 2. Lipitor 20 mg p.o. nightly. 3. Eliquis 5 mg p.o. twice daily. 4. Erythromycin eye drops. 5. Flomax 0.4 mg p.o. daily. 6. Lisinopril 10 mg p.o. daily. 7. Omeprazole 40 mg p.o. daily. 8. Prednisone eyedrops twice a day. 9. Mineral oil eyedrops twice a day. 10. Acyclovir 400 mg p.o. twice daily. 11. Levaquin 750 mg p.o. daily for 4 more days. 12. Tylenol 650 mg p.o. every 6 hours p.r.n. DISCHARGE DISPOSITION: Home. Dictated by INES Ortiz for Uriah Lewis MD cc: INES Ortiz MD MTDD
[2019-12-13] MEDS ORDERED: ROCEPHIN 1 GM in NS 50 ML IV SCH (14:30)
== END 2019-12-13 13:20 | disposition home or self-care (01) ==
LOC: P.ED 13:01 → 2N 13:01 → SUATTDRO 14:47 → 2N 15:14
PROVIDERS: ATTEND Internal Medicine

== ENCOUNTER 2019-12-16 14:40 | Inpatient (IN) ==
[2019-12-16] MEDS ORDERED: NS 1,000 ML IV ONE (14:46)
[2019-12-16] MEDS ORDERED: ADENOCARD IV ONE ×2 (15:06→15:30)
--- NOTE | 2019-12-16 15:33 | EKG Report ---
Test Performed on : 12/16/2019 3:04:25 PM Test Reason : conversion of SVT Blood Pressure : / mmHG Vent. Rate : 155 BPM Atrial Rate : 060 BPM P-R Int : 000 ms QRS Dur : 112 ms QT Int : 320 ms P-R-T Axes : 000 -19 -16 degrees QTc Int : 514 ms Supraventricular tachycardia. Inferior-posterior infarct (cited on or before 17-JUN-2010) Abnormal ECG When compared with ECG of 13-DEC-2019 06:54, [place] interval has decreased Vent. rate has increased BY 104 BPM Right bundle branch block is no longer present Unconfirmed Result
[2019-12-16] MEDS ORDERED: CORDARONE IV ONE ×2 (15:36→16:08)
--- NOTE | 2019-12-16 15:41 | EKG Report ---
Test Performed on : 12/16/2019 3:33:58 PM Test Reason : TACHYCARDIA Blood Pressure : / mmHG Vent. Rate : 094 BPM Atrial Rate : 094 BPM P-R Int : 188 ms QRS Dur : 114 ms QT Int : 388 ms P-R-T Axes : 000 -09 -29 degrees QTc Int : 485 ms Normal sinus rhythm. Incomplete right bundle branch block Lateral infarct , age undetermined Inferior infarct (cited on or before 17-JUN-2010) Abnormal ECG When compared with ECG of 16-DEC-2019 15:04, (Unconfirmed) Vent. rate has decreased BY 61 BPM Unconfirmed Result
[2019-12-16 15:56] LABS: BASO# 0.02 X1000 (0.0-0.2); BASO% 0.1 % (0.0-0.8); EOS# 0.03 X1000 (0.0-0.7); EOS% 0.2 % (0.0-10.0); HEMATOCRIT 42.5 % (42.0-52.0); HEMOGLOBIN 13.9 g/dL (14.0-18.0); IMM GRAN# 0.02 X1000 (0.0-0.04); IMM GRAN% 0.1 % (0.0-0.5); LYMPH# 0.72 X1000 (1.2-3.4); MCH 31.7 PG (27-31); MCHC 32.7 g/dL (33-37); MONO# 1.02 X1000 (0.11-0.59); MONO% 7.1 % (1.7-9.3); MPV 11.8 FL (7.4-10.4); NEUT# 12.46 X1000 (1.4-6.5); NEUT% 87.5 % (42.2-75.2); PLT 197 X1000 (130-400); RBC 4.38 XMIL (4.7-6.1); RDW 12.2 % (11.5-14.5); WBC 14.27 X1000 (4.8-10.8)
[2019-12-16] MEDS ORDERED: CORDARONE 360 MG/D5W 360 MG/200 ML IV.SOLN IV ONE ×2 (16:07→17:39)
--- NOTE | 2019-12-16 16:23 | Diag Imaging Result Doc PS360 ---
EXAM: CHEST-PORTABLE INDICATION: sob TECHNIQUE: One view COMPARISON: 12/13/2019 FINDINGS: There has been improvement of atelectasis and infiltrate at the right lung base. However, at the right midlung zone there is slight increased opacity suggesting developing infiltrate. There is no new consolidation on the left. There is no discrete pleural fluid collection or pneumothorax. The cardiomediastinal silhouette and central vasculature are grossly unremarkable. IMPRESSION: Interval improvement of atelectasis and infiltrate at the right lung base but increased opacity in the right midlung zone suggesting developing infiltrate. Electronically signed by Gaudencio Mendoza 12/16/2019 4:20 PM
[2019-12-16 16:26] LABS: INR 1.27; PROTIME 16.1 Seconds (11.0-16.0); PTT 31.7 Seconds (22.3-41.8)
[2019-12-16 16:27] LABS: ALB/GLOB RATIO 1.5; ALBUMIN 3.5 g/dL (3.5-5.0); CALCIUM 9.5 mg/dL (8.8-10.2); CREATININE 1.3 mg/dL (0.7-1.2); MAGNESIUM 1.8 mg/dL (1.5-2.7); POTASSIUM 5.2 mmol/L (3.5-5.1); TOTAL BILIRUBIN 0.4 mg/dL (0.20-1.00); TOTAL PROTEIN 5.9 g/dL (6.3-8.3)
[2019-12-16] MEDS ORDERED: ZOSYN 4.5 GM in NS 100 ML IV ONE (16:27)
[2019-12-16] MEDS ORDERED: VANCOMYCIN 1 GM/NS 1 GM/250 ML IVPB IV ONE (16:27)
--- NOTE | 2019-12-16 16:51 | Diag Imaging Result Doc PS360 ---
EXAM: CT HEAD W/O CONTRAST INDICATION: weak, on Eliquis TECHNIQUE: This exam was performed using automated exposure control, adjustment of mA or kV according to patient size, and/or use of iterative reconstruction technique. COMPARISON: 12/18/2015 FINDINGS: There is suggestion of minimal white matter microangiopathy in the subinsular white matter, stable. There is no definite acute infarct given the limited sensitivity of CT versus MRI. There is no discrete intracranial mass, mass effect, or intracranial hemorrhage. The right mastoid air cells are under aerated and there is a right mastoid air cell effusion, stable. Surrounding soft tissues and bony structures are essentially unremarkable, otherwise. IMPRESSION: No evidence of acute intracranial pathology. Electronically signed by Gaudencio Mendoza 12/16/2019 4:49 PM
[2019-12-16 16:55] LABS: URINE SOURCE CLEAN CATCH
[2019-12-16 16:58] LABS: BILIRUBIN URINE NEGATIVE (NEGATIVE); BLOOD URINE NEGATIVE (NEGATIVE); COLOR YELLOW; GLUCOSE URINE NEGATIVE (NEGATIVE); KETONE URINE NEGATIVE (NEGATIVE); LEUKOCYTES URINE NEGATIVE (NEGATIVE); NITRITE URINE NEGATIVE (NEGATIVE); PROTEIN URINE TRACE mg/dL (NEGATIVE); SP GRAVITY URINE 1.016; TURBIDITY URINE CLEAR (CLEAR); UROBILINOGEN URINE NORMAL (NORMAL)
[2019-12-16 16:59] LABS: UR EPITHELIAL CELLS <10 /HPF (<10); URINE BACTERIA NEGATIVE /HPF; URINE RBC <10 /HPF (<10); URINE WBC <10 /HPF (<10)
--- NOTE | 2019-12-16 17:05 | PROVIDER DOCUMENTATION ---
This chart was entered by Vanessa Plaza Scribe, acting as scribe for Marco Stokes MD. HPI-General Adult - General Stated Complaint: NEAR SYNCOPE Time Seen by Provider: 12/16/19 14:48 Source: patient, EMS ([facility]) Allergies/Adverse Reactions: Patient Allergies Allergy/AdvReac Type Severity Reaction Status Date / Time No Known Allergies Allergy Verified 08/05/18 12:58 Home Medications: Home Medication List Medication Instructions Recorded Confirmed Last Taken Type Atorvastatin Calcium [Lipitor] 20 mg PO QHS 12/18/15 12/12/19 12/17/15 History Apixaban [Eliquis] 5 mg PO BID 08/05/18 12/12/19 Unknown History Acyclovir [Zovirax] 400 mg PO BID 12/12/19 12/12/19 12/12/19 History 0800 Cyclobenzaprine [Flexeril] 10 mg PO QHS 12/12/19 12/12/19 Unknown History Erythromycin Oph Ointment 3.5 gm .SEE ORDER BID 12/12/19 12/12/19 12/12/19 History 0800 Lisinopril 10 mg PO DAILY 12/12/19 12/12/19 12/12/19 History Mineral Oil, Light/Mineral Oil 15 ml OPHTHALMIC (EYE) BID 12/12/19 12/12/19 12/12/19 History [Soothe Xp Eye Drops] Omeprazole 40 mg PO DAILY 12/12/19 12/12/19 12/12/19 History 0800 Prednisolone Acetate/Pf 5 ml OPHTHALMIC (EYE) BID 12/12/19 12/12/19 12/12/19 History [Prednisolone Acet 1% Eye Drop] 0800 Tamsulosin [Flomax] 0.4 mg PO QAM 12/12/19 12/12/19 12/12/19 History 0800 Acetaminophen [Tylenol] 650 mg PO Q6H PRN PRN tab 12/13/19 Unknown Rx Levofloxacin [Levaquin] 750 mg PO DAILY #4 tab 12/13/19 Unknown Rx - History of Present Illness -Gen Adult Nature of Presenting Problems: 64 yowm presents to the ed via ems ([facility]) with c/o near syncope and productive cough. pt has no other complaints upon arrival in er. ems reports pt was hypotensive upon their arrival with a BP 64/30 and HR 150's. pt was recently dc from hospital. pt is vague with onset of the near syncopal episode and requested he be taken to but ems declined due to BP and HR and brought to this ed. dr stokes met pt on the stretcher and spoke with him at length then was back at bedside when ems transferred pt to the bed Location of Pain/Injury: reports: none Pain Radiation: reports: no radiation Quality of Pain: reports: none Severity: reports: moderate (hypotensive) Onset/Duration: reports: unsure Timing: reports: still present Context/Activities at Onset: reports: light activity Associated Symptoms: reports: cough, syncope (pt c/o near syncope with [employer]). denies: back/neck pain, chest pain, diarrhea, fever/chills, nausea, shortness of breath, vomiting Similar Symptoms Previously?: Yes Recently seen or treated by another doctor?: Yes (seen in ed 12/12/2019) Review of Systems - Adult - REVIEW OF SYSTEMS - ADULT Constitutional: denies: chills, fever Eyes: reports: no symptoms reported Ears, Nose, Mouth & Throat: reports: no symptoms reported Cardiovascular: denies: chest pain, palpitations Respiratory: reports: see HPI, cough, wheezing. denies: shortness of breath Gastrointestinal: denies: abdominal pain, diarrhea, nausea, vomiting Genitourinary: reports: no symptoms reported Musculoskeletal: denies: back pain, neck pain Integumentary: reports: no symptoms reported Neurological: reports: see HPI, syncope (near syncope with manager endoscopy). denies: dizziness/vertigo, headache/migraines Psychiatric: reports: no symptoms reported Endocrine: reports: no symptoms reported Hematologic/Lymphatic: reports: no symptoms reported Allergic/Immunologic: reports: no symptoms reported All Other Systems: Reviewed and Negative Past History - Adult - PAST MEDICAL HISTORY-ADULT Review of Records: reports: Old Records Reviewed, Nursing Assessment Review, Medications Reviewed, Social history reviewed & non-contributory. Major Childhood Illnesses: reports: denies history Cardiovascular: reports: A-Fib, arrhythmia (SVT), CHF, HTN, LA Respiratory: reports: denies history, pneumonia Gastrointestinal: reports: GERD Genitourinary: reports: kidney disease Musculoskeletal: reports: denies history Neurological: reports: CVA, stroke deficits (left side) Psychiatric: reports: denies history Endocrine/Immune: reports: denies history Other Conditions: reports: cataract/glaucoma - PRIOR SURGERIES/PROCEDURES Surgical/Procedure History: reports: cholecystectomy, other (feeding tube) - IMMUNIZATION STATUS Childhood Immunizations: See Nurse Assessment Flu Vaccine: See Nurse Assessment - FAMILY HISTORY Family History: reviewed, not pertinent - SOCIAL HISTORY Smoking: quit less than 1 year Substance Use: denies Living Situation: family Physical Exam-General - PHYSICAL EXAM-ADULT Initial Vital Signs Reviewed: Yes (BP-75/53 HR-147) - CONSTITUTIONAL General Appearance: appears well, alert, no apparent distress (nontoxic in appearance) - EYES Eyes: other (rt cornea has post operative changes) - HEAD, EARS, NOSE, MOUTH & THROAT HENMT: other (no teeth). negative: moist mucous membranes (dry oral) - NECK Neck: non-tender, full range of motion, supple - RESPIRATORY Respiratory: chest non-tender, rhonchi (bilateral), wheezing (bilateral) - CARDIOVASCULAR Cardiovascular: normal peripheral pulses, tachycardia (SVT) - GASTROINTESTINAL (ABDOMEN) Abdominal Exam: normal bowel sounds, non tender, soft - GENITOURINARY Male Genitalia: deferred Rectal Exam: deferred Hemoccult Exam: deferred - LYMPHATIC Lymphatic: no adenopathy - MUSCULOSKELETAL Back Exam: no CVA tenderness, no vertebral tenderness Extremity: normal range of motion, normal capillary refill, pelvis stable - SKIN Integumentary: normal color, normal turgor, warm/dry - NEUROLOGIC Neurologic: grossly normal - PSYCHIATRIC Psych/Mental Status: normal mood/affect, normal thought content, normal thought process, oriented x 3 Progress - PLAN OF CARE/RESULTS Result Diagrams: 12/16/19 15:13 12/16/19 15:13 - REASSESSMENT Reassessment #1 Time Reassessed: 15:27 Status: improving (pt was cardioverted with adenosin x1 dose and now is in a NSR. pt reports he feels much improved and dr stokes is at bedside speaking with pt. HR 88) Reassessment #2 Time Reassessed: 15:36 Status: unchanged (pt went back into svt and had to have 2nd dose of adension and cardioverted the 2nd time. dr stokes was at bedside bedside with pt when after he went back into SVT) Reassessment #3 Time Reassessed: 15:52 Status: improving (dr stokes is at bedside pt is back into a sinus rhythm with rate of 70 and is calm resting in bed. pt converted with 150 of amiodarone) - EKG 1 Time of EKG reading by physician:: 15:04 EKG Read and Signed by:: Marco Stokes EKG Interpretation (*Must complete 3 of following elements*): Abnormal Rate: 155 Rhythm: supraventricular tachycardia [place]: normal QRS: normal MN Interval: normal ST Wave: normal Comments: inferior posterior infarct, age undetrmined 2 Time of EKG reading by physician:: 15:33 EKG Read and Signed by:: Marco Stokes EKG Interpretation (*Must complete 3 of following elements*): Abnormal Rate: 94 Rhythm: nsr QRS: RBB (incomplete RBB) MN Interval: normal ST Wave: normal Prior EKG Comparison: changes noted Comments: lateral/inferior infarct, age undetrmined - XRAY 1 XRAY: Bilateral XRAY Study: Chest Impression: See EMR Report (IMPRESSION: Interval improvement of atelectasis and infiltrate at the right lung base but increased opacity in the right midlung zone suggesting developing infiltrate. Electronically signed by Gaudencio Mendoza 12/16/2019 4:20 PM) - CT/MRI 1 CT Study: Head Impression: See EMR Report (IMPRESSION: No evidence of acute intracranial pathology. Electronically signed by Gaudencio Mendoza 12/16/2019 4:49 PM) - CONSULTS/PCP/HOSPITALIST Notification #1 *Consult/PCP/Hospitalist*: hospitalist dr duran Time Discussed: 17:02 (spoke with vani) Consult Disposition: Admit Departure - Departure Date of Disposition Decision: 12/16/19 Time of Disposition Decision: 17:03 DIAGNOSIS: PSVT (paroxysmal supraventricular tachycardia), Transient hypotension Right lower lobe pneumonia Qualifiers: Pneumonia type: aspiration pneumonia Aspiration pneumonia type: due to regurgitated food Qualified Code(s): J69.0 - Pneumonitis due to inhalation of food and vomit Sepsis with acute organ dysfunction Qualifiers: Sepsis type: sepsis due to unspecified organism Severe sepsis acute organ dysfunction type: unspecified Severe sepsis shock status: without septic shock Qualified Code(s): A41.9 - Sepsis, unspecified organism; R65.20 - Severe sepsis without septic shock Disposition: ADMITTED INPATIENT 09 Certified Medical Emergency: Emergent Condition: Fair Referrals and Follow-Ups: None,PCP [NON-STAFF PROVIDER] - - Critical Care Note This patient required my direct & personal management of CC.: Yes Total Time (mins): 45 Critical Care Statement: This patient required my direct personal management to treat or rule out processes, the absence of which, could potentiallly result in sudden, clinically significant life or limb threatening deterioration. Attestation - Physician/ KATLYN Attestation Patient care was provided by Advanced Practice Provider:: No The physician spent face to face time with patient:: Yes Advanced Practice Provider documentation review:: Supervising physician onsite and consulted in the evaluation and care of this patient. The physician did have a face to face encounter with the patient. This chart was documented by the indicated scribe, (Vanessa Plaza Scribe) and accurately reflects the services I performed and decisions made by me, Marco Stokes MD, as attested by the provider's signature.
[2019-12-16] MEDS ORDERED: ZOFRAN IV PRN (17:25)
[2019-12-16] MEDS ORDERED: TYLENOL PO PRN (17:25)
[2019-12-16] MEDS: CORDARONE IV ONE ×2 (17:38→18:04)
[2019-12-16] MEDS ORDERED: LOPRESSOR IV ONE (17:41)
[2019-12-16] MEDS ORDERED: MAGNESIUM SULFATE 2 GM/S.W.I. 2 GM/50 ML IVPB IV ONE (17:42)
--- NOTE | 2019-12-16 17:53 | HISTORY AND PHYSICAL ---
Mr. Parker is a 64-year-old. He is followed by Dr. Kiera Stearns. PAST MEDICAL HISTORY: 1. COPD which he denies but there is a past report of COPD. 2. Coronary artery disease, status post stents. 3. CVA 10 years ago. 4. Hyperlipidemia. 5. Right corneal transplant, right eye infection ongoing 2 years, on multiple eyedrops including acyclovir. PAST SURGICAL HISTORY: 1. Tracheostomy placement and removal after he had a myocardial infarction and CVA which occurred about 10 years ago, status post 2 coronary stents, status post PEG insertion and removal. 2. 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 3. Cholecystectomy. HISTORY OF PRESENT ILLNESS: The patient was last admitted recently on 12/12/2019. He is on a pureed diet. He does admit that if he swallows too big a bite, he will choke on it and aspirate at times. Last time, it looks like he was admitted with an aspiration pneumonia. Last time on arrival, he had atrial fibrillation with a rapid ventricular rate and they gave him some digoxin. This time, he presents. He said he was seen white spots and felt a little bit lightheaded. He had been coughing. Came to the emergency room where he had what appeared to be supraventricular tachycardia with a right partial bundle branch, rate of 150. They gave him some adenosine and it broke for a short time. Then went back in an elevated rate and they gave him a dose of the amiodarone. He is back in sinus rhythm. He did not report chest pain or shoulder or jaw pain, but his x-ray did reveal another infiltrate it looks like, probably consistent with aspiration pneumonia. SOCIAL HISTORY: Remote tobacco use. No alcohol or illicit drugs. He is eating a pureed diet. He is supposed to drink Ensure. ALLERGIES: No known drug allergies. FAMILY HISTORY: I see no previous reported significant family history. REVIEW OF SYSTEMS: He does not report any weight gain or loss, fever, or chills. HEENT: No change in visual or hearing acuity. He did see some white spots today. I think this probably correlates with his supraventricular tachycardia. Respiratory: He feels a little more dyspnea and he has had a cough. Cardiovascular: No chest pain or tachy palpitations until presentation. He could tell his heart rate was going fast. Gastrointestinal and Genitourinary: No gross hematuria, dysuria, hematochezia. Musculoskeletal/Neurologic: No focal complaints. Endocrinologic/Hematologic: No significant history. PHYSICAL EXAMINATION: GENERAL: He is awake, alert, oriented x3. VITAL SIGNS: Temperature was 99.4 degrees, pulse 150, respirations 22, blood pressure 80/61. HEENT: Pupils are equal and round. LUNGS: Clear anterolaterally. CARDIOVASCULAR EXAMINATION: Regular rhythm and rate without murmur or S3. No distended neck veins. Carotid, radial, femoral pulses 2+ and symmetrical. ABDOMEN: Nondistended. No complaints of abdominal pain. No pedal edema. NECK: Supple. No thyromegaly. No sign of adenopathy. LABORATORY DATA: White count 14,270, hematocrit 42, platelet count 197,000. Sodium 138, potassium 5.2, chloride 102, BUN 26, creatinine 1.3, calcium 9.5. AST 16, ALT 9, alkaline phosphatase is 46. His troponin was 20. Albumin 3.5. TSH 5.71. Prothrombin time is 16.1, PTT 31. Urinalysis unremarkable. His chest x-ray, interval improvement of atelectasis, infiltrate in the right lung base but increased opacity in the right mid lung zone, suggesting developing infiltrate. Head CT without contrast, no evidence of acute intracranial pathology. ASSESSMENT AND PLAN: 1. Suspect new aspiration pneumonitis. He is not allergic to anything so we will cover him. I guess we will use cefepime and give him 1 g intravenously every 12 hours. We will give him DuoNeb treatments every 4 hours while awake. We will put him on a steroid inhaler. We can use Symbicort 80 mcg 2 puffs twice a day. We will put him on some guaifenesin extended release 1200 mg by mouth twice a day. We will put him on supplementary oxygen at 2 L per nasal cannula. 2. It looks like supraventricular tachycardia. Apparently, he has had atrial fibrillation before. He is back in sinus rhythm. Reviewing his home medications, he is on Eliquis 5 mg twice a day. He takes lisinopril 10 mg a day and I think he probably would benefit from a beta luis so we will put him on metoprolol 12.5 mg twice a day by mouth. 3. History of hypercholesterolemia and coronary artery disease. Continue his Lipitor at 20 mg a day. 4. He has had a corneal transplant and I think he is on eyedrops. Continue his eyedrops. 5. Since his cerebrovascular accident, having trouble still swallowing so we may get speech therapy involved just to kind evaluate his swallow. We will do a modified barium swallow test on him tomorrow. 6. History of coronary artery disease, status post stents. 7. History of cerebrovascular accident 10 years ago. cc: Jermain Lagos MD
[2019-12-16] MEDS: NS 1,000 ML IV SCH (17:56)
[2019-12-16] MEDS: SYMBICORT 80/4.5 MICROGM INHALER INH SCH (19:30)
[2019-12-16] MEDS: MAXIPIME 1 GM in NS 50 ML IV SCH (19:53)
[2019-12-16] MEDS: LOPRESSOR PO SCH (21:00)
[2019-12-16] MEDS ORDERED: ERYTHROMYCIN SCH (21:00)
[2019-12-16] MEDS: ATROVENT NEB INH SCH (22:19)
[2019-12-16] MEDS: XOPENEX NEB INH SCH (22:19)
[2019-12-16] MEDS: ZOVIRAX PO SCH (22:28)
[2019-12-16] MEDS: FLEXERIL PO SCH (22:28)
[2019-12-16] MEDS: MUCINEX PO SCH (22:28)
[2019-12-16] MEDS: ERYTHROMYCIN OPH OINTMENT RIGHT EYE SCH (22:29)
[2019-12-16] MEDS: ELIQUIS PO SCH (22:59)
[2019-12-16] MEDS: LIPITOR PO SCH (23:00)
[2019-12-17] MEDS: ATROVENT NEB INH SCH ×4 (03:37→21:30)
[2019-12-17] MEDS: XOPENEX NEB INH SCH ×4 (03:38→21:30)
[2019-12-17] MEDS: NS 1,000 ML IV SCH ×2 (05:34→17:46)
[2019-12-17] MEDS: MAXIPIME 1 GM in NS 50 ML IV SCH ×2 (05:40→17:46)
[2019-12-17 06:44] LABS: BASO# 0.02 X1000 (0.0-0.2); BASO% 0.3 % (0.0-0.8); EOS# 0.15 X1000 (0.0-0.7); HEMATOCRIT 38.7 % (42.0-52.0); HEMOGLOBIN 12.4 g/dL (14.0-18.0); LYMPH# 1.53 X1000 (1.2-3.4); MCH 31.9 PG (27-31); MCV 99.5 FL (81-99); MONO# 0.54 X1000 (0.11-0.59); MONO% 7.1 % (1.7-9.3); MPV 10.7 FL (7.4-10.4); NEUT# 5.41 X1000 (1.4-6.5); NEUT% 70.6 % (42.2-75.2); PLT 174 X1000 (130-400); RBC 3.89 XMIL (4.7-6.1); RDW 12.4 % (11.5-14.5); WBC 7.65 X1000 (4.8-10.8)
[2019-12-17] MEDS: PRILOSEC PO SCH (07:00)
[2019-12-17 07:32] LABS: AGAP 8; ALB/GLOB RATIO 1.5; ALBUMIN 3.2 g/dL (3.5-5.0); ALKALINE PHOSPHATASE 39 U/L (32-122); BUN 20 mg/dL (8-22); CALCIUM 8.6 mg/dL (8.8-10.2); CHLORIDE 106 mmol/L (98-107); COSMO 278; CREATININE 0.9 mg/dL (0.7-1.2); ESTIMATED GFR > 60; GLUCOSE 85 mg/dL (70-104); GOT 12 U/L (10-34); GPT 9 U/L (10-44); MAGNESIUM 2.2 mg/dL (1.5-2.7); POTASSIUM 4.1 mmol/L (3.5-5.1); SODIUM 138 mmol/L (136-145); TCO2 24 mmol/L (25-35); TOTAL PROTEIN 5.4 g/dL (6.3-8.3)
--- NOTE | 2019-12-17 07:37 | EKG Report ---
Test Performed on : 12/17/2019 07:16:00 AM Test Reason : chest pain Blood Pressure : / mmHG Vent. Rate : 061 BPM Atrial Rate : 061 BPM P-R Int : 334 ms QRS Dur : 122 ms QT Int : 478 ms P-R-T Axes : 022 -04 012 degrees QTc Int : 481 ms Sinus rhythm. with 1st degree AV block. Right bundle branch block Inferior infarct (cited on or before 17-JUN-2010) Anterolateral infarct (cited on or before 17-JUN-2010) Nonspecific T wave abnormality Abnormal ECG When compared with ECG of 16-DEC-2019 15:33, (Unconfirmed) UT interval has increased Vent. rate has decreased BY 33 BPM Questionable change in initial forces of Anterior leads Nonspecific T wave abnormality has replaced inverted T waves in Inferior leads Confirmed by Aron Machado MD ([id number]) on 12/17/2019 3:58:40 PM
[2019-12-17 08:19] LABS: FREE T4 0.93 ng/dL (0.93-1.70); TSH 3.75 uIUmL (0.27-4.20)
--- NOTE | 2019-12-17 08:26 | EKG Report ---
Test Performed on : 12/17/2019 08:19:21 AM Test Reason : REPEAT Blood Pressure : / mmHG Vent. Rate : 044 BPM Atrial Rate : 044 BPM P-R Int : 364 ms QRS Dur : 120 ms QT Int : 496 ms P-R-T Axes : 031 -08 069 degrees QTc Int : 424 ms Critical Test Result: Low HR Marked sinus bradycardia. with 1st degree AV block. Right bundle branch block Inferior infarct (cited on or before 17-JUN-2010) Anterolateral infarct (cited on or before 17-JUN-2010) Nonspecific T wave abnormality Abnormal ECG When compared with ECG of 17-DEC-2019 07:16, (Unconfirmed) QT has shortened Confirmed by Aron Machado MD ([id number]) on 12/17/2019 3:59:43 PM
[2019-12-17] MEDS ORDERED: NON-FORMULARY MED (Omeprazole 40 MG) PO SCH (09:00)
[2019-12-17] MEDS: LOPRESSOR PO SCH (09:29)
[2019-12-17] MEDS: SYMBICORT 80/4.5 MICROGM INHALER INH SCH ×2 (09:42→21:30)
[2019-12-17] MEDS: PATIENT'S OWN MED OPH SCH ×4 (10:18→20:57)
[2019-12-17] MEDS: FLOMAX PO SCH (10:18)
[2019-12-17] MEDS: MUCINEX PO SCH ×2 (10:18→20:55)
[2019-12-17] MEDS: ERYTHROMYCIN OPH OINTMENT RIGHT EYE SCH ×2 (10:19→20:56)
[2019-12-17] MEDS: ELIQUIS PO SCH ×2 (10:22→20:55)
[2019-12-17] MEDS: ZOVIRAX PO SCH ×2 (10:22→20:55)
[2019-12-17] MEDS: MULTAQ PO SCH ×2 (12:29→20:55)
--- NOTE | 2019-12-17 12:57 | CONSULTATION ---
DATE OF CONSULTATION: 12/17/2019 IMPRESSION: 1. Recurrent supraventricular tachycardia with associated near-syncope and hypotension. The patient converted with adenosine initially, but had recurrent supraventricular tachycardia and was subsequently given additional adenosine and then intravenous amiodarone times 1 dose. He continues in sinus bradycardia. 2. Recent episode of supraventricular tachycardia prompting hospitalization within the past week while patient was on metoprolol 12.5 mg oral twice daily. Atrial flutter also it is suspected given the rate. 3. Previous cerebrovascular accident in the past more than 10 years ago. 4. Atherosclerotic coronary disease with history of previous coronary angioplasty/stenting in the past, also more than 10 years ago. 5. Atrial fibrillation in the past according to previous cardiovascular records. 6. Chronic obstructive pulmonary disease with some recent productive cough of white sputum. 7. Hyperlipidemia. RECOMMENDATIONS: 1. Patient's presentation and care plan reviewed with spudder, Dr. Madrid in [place]. His SVT may possibly be atrial tachycardia. He has demonstrated tendency for sinus bradycardia and first-degree AV block, which dictates caution with antiarrhythmic therapy. It was recommended that he switch from low-dose metoprolol to low-dose Multaq for now. Anticoagulation to be continued. The patient to have prompt outpatient followup with Dr. Madrid this Sunday in the [facility]. 2. Given tendency for low blood pressure would be judicious with antihypertensive therapy. Left ventricular ejection fraction normal and his low blood pressure seems to be out of proportion to his tachyarrhythmia. HISTORY: This 64-year-old white male with past history of atherosclerotic coronary disease, previous angioplasty/stenting following myocardial infarction more than 10 years ago, previous atrial fibrillation, SVT, previous cerebrovascular accident more than 10 years ago, hypertension, and tendency for bradycardia was admitted through the emergency room yesterday afternoon. He relates onset of tachy palpitations and significant lightheadedness. There was no chest pain. He was brought to the emergency room by EMS. Blood pressure was low. He had narrow complex supraventricular tachycardia. ECG demonstrated narrow complex regular tachycardia, probably SVT. He was given adenosine 6 mg and converted to sinus rhythm initially. Had recurrence of SVT and was given additional adenosine and thereafter intravenous amiodarone x1 dose. He has converted back to sinus rhythm. He is currently on low-dose metoprolol and demonstrates sinus bradycardia with first-degree AV block. He has not had any chest discomfort. He has had some cough productive of white sputum. He was just hospitalized here for SVT, possibly atrial flutter within the past week. He had been on low-dose metoprolol at that time. However, he demonstrated a tendency for significant bradycardia with first degree AV block, which was asymptomatic. He was discharged to have followup in electrophysiology/arrhythmia clinic. However he had recurrence of his arrhythmia, prompting him to come back to the hospital. He previously had some chest tightness with his SVT, although this was not severe. He also has recently had some tendency for cough productive of white sputum. There has been no fever noted. He does not normally use inhalers. Echocardiography during his recent hospitalization demonstrated normal left ventricular ejection fraction with some akinesis of the basal inferior wall. PAST MEDICAL HISTORY: 1. Atherosclerotic coronary disease with previous coronary angioplasty/stenting in the past following myocardial infarction. This was more than 10 years ago. 2. Recurrent SVT. 3. Previous atrial fibrillation. 4. Status post previous cerebrovascular accident. 5. Tendency for bradycardia documented in the past. 6. Hypertension. 7. Hyperlipidemia. 8. Gastroesophageal reflux disease. 9. Chronic obstructive pulmonary disease. 10. Status post right corneal transplant. PAST SURGICAL HISTORY: 1. Also includes tracheostomy following cerebrovascular accident. 2. Temporary percutaneous endoscopic gastrostomy tube placement following cerebrovascular accident. 3. Cholecystectomy. ALLERGIES: No known drug allergies. MEDICATIONS PRIOR TO ADMISSION: As listed. SOCIAL HISTORY: He quit smoking 13 years ago and previously smoked no more than a pack of cigarettes per week. He does not use alcohol. FAMILY HISTORY: Positive for coronary disease. REVIEW OF SYSTEMS: Pulmonary: Noteworthy for cough productive of white sputum. He denies shortness of breath at rest. He has had some chronic exertional shortness of breath. Gastrointestinal: Noncontributory beyond history of present illness. Constitutional: Negative for fever. Remainder of review of systems negative/noncontributory with 14 total systems reviewed. PHYSICAL EXAMINATION: General: This is a thin older white male, who appears older than stated age and in no distress. Vital signs: Blood pressure 110/73, heart rate 51 to 60 with ECG monitor showing sinus bradycardia, oxygen saturation 100% on nasal cannula oxygen at 3 liters/minute. HEENT exam: Extraocular movements appear intact. Mucous membranes moist. Neck: Supple without jugular venous distention. There are no carotid bruits. Chest: Auscultation of the chest reveals a few scattered expiratory wheezes. No rales could be appreciated. Cardiac Exam: Reveals a regular bradycardia without appreciable murmur or gallop. Abdomen: Soft. Bowel sounds are normal. Extremities: Without edema. Neurologic exam: Alert and fully oriented. Speech is fluent. Moves all 4 extremities equally well. Skin: Warm and dry. Psychiatric: Reveals mood to be appropriate. IMAGING STUDIES: Initial 12 lead EKG demonstrates narrow complex regular tachycardia at 155 beats per minute, probably SVT, although atrial flutter cannot entirely be excluded. Evidence of previous inferior infarct demonstrated .Incomplete right bundle branch block demonstrated. Repeat ECG following initial dose of adenosine demonstrates sinus rhythm, incomplete right bundle branch bloc,. And inferior infarct of undetermined age. Current ECG this morning on metoprolol 12.5 mg p.o. b.i.d. demonstrates sinus bradycardia at 44 beats per minute with 1st degree AV block and a MS interval 360 milliseconds. Right bundle branch block demonstrated. Old inferior infarct demonstrated. LABORATORY DATA: Laboratory data includes a white blood cell count of 7.65, hematocrit 38.7, hemoglobin 12.4, platelet count 174. Sodium 138, potassium 4.1, chloride 106, carbon dioxide 24. BUN 20, creatinine 0.9, magnesium 2.2, glucose is 85. TSH 3.75. cc: Lester Chaidez MD
--- NOTE | 2019-12-17 14:06 | PROGRESS NOTE ---
DATE: 12/17/2019 SUBJECTIVE: Mr. Parker is feeling much better, breathing more comfortably. His blood pressure is up. He remains afebrile. OBJECTIVE: Vital Signs: Temperature 97.6 degrees, pulse 60, respirations 12, blood pressure 110/73. Eyes: Pupils are equal and round. Lungs: Clear in all lung bustillo. Cardiovascular exam: Regular rhythm and rate without murmur or S3. Abdomen: Soft. Skin: Skin is warm and dry. : Urine output was about 2000 mL. ASSESSMENT AND PLAN: Recurrent supraventricular tachycardia with associated near-syncope and hypotension. The patient converted with adenosine initially, then subsequently went back at a rate of above 150, given additional adenosine and intravenous amiodarone. He then developed tachycardia again, and I gave him 5 mg intravenous of metoprolol. He moved to progressive care unit. He has had a previous cerebrovascular accident about 10 years ago. He has known coronary artery disease, history of previous coronary angioplasty and stenting more than 10 years ago, and a history of atrial fibrillation in the past with previous cardiovascular records and then chronic obstructive pulmonary disease. The patient's presentation is supraventricular tachycardia, possible atrial tachycardia. He has demonstrated tendency for sinus bradycardia, first-degree atrioventricular block which indicates caution with antiarrhythmic therapy, so switch him from low- dose metoprolol to low-dose Multaq and see how he does. He definitely feels a lot better at this point. On exam, afebrile. REVIEW OF HIS ORDERS: He is on Lipitor 20 mg a day, Flexeril 10 mg at bedtime, guaifenesin ER 1200 mg p.o. twice a day, acyclovir 400 mg p.o. b.i.d., Eliquis 5 mg b.i.d., Multaq 200 mg b.i.d., cefepime 1 g IV q. 12 hours, normal saline at 85 mL an hour, Prilosec 40 mg a day, Flomax 0.4 mg q.a.m. We are treating him for possible pneumonia. Chest x-ray did show an interval improvement, atelectasis and infiltrate on the right lung base, but increased opacity in the right mid lung. REVIEW OF HIS LAB THIS MORNING: White count 7650, hematocrit 38, platelet count 174,000. Chemistries and electrolytes unremarkable. cc: Jermain Lagos MD
--- NOTE | 2019-12-17 15:38 | Diag Imaging Result Doc PS360 ---
BA SWALLOW W/VIDEO SPEECH THER - 12/17/2019 INDICATION: dysphagia; aspiration pna TECHNIQUE: Total fluoroscopy time was 32 seconds. 125 images were obtained. COMPARISON: 01/03/2018 FINDINGS: There is immediate, large volume aspiration throughout the exam. This occurs both with thin liquids and pureed solid consistencies. IMPRESSION: Severe, consistent aspiration. Electronically signed by Shoaib Oates 12/17/2019 3:36 PM
--- NOTE | 2019-12-17 15:41 | Diag Imaging Result Doc PS360 ---
CHEST-2 VIEWS - 12/17/2019 INDICATION: sob; pna COMPARISON: 12/16/2019 FINDINGS: There is extensive barium aspiration in airways in the right lower lobe. This is from the recent modified barium swallow to confirm the aspiration. IMPRESSION: Significant aspiration of the barium from the modified barium swallow. Electronically signed by Shoaib Oates 12/17/2019 3:38 PM
[2019-12-17] MEDS: LIPITOR PO SCH (20:55)
[2019-12-17] MEDS: FLEXERIL PO SCH (20:55)
[2019-12-18] MEDS: ATROVENT NEB INH SCH ×2 (03:40→08:52)
[2019-12-18] MEDS: XOPENEX NEB INH SCH ×2 (03:40→08:52)
[2019-12-18] MEDS: PRILOSEC PO SCH (06:00)
[2019-12-18] MEDS: MAXIPIME 1 GM in NS 50 ML IV SCH (06:00)
[2019-12-18] MEDS: NS 1,000 ML IV SCH (06:21)
[2019-12-18 06:24] LABS: BASO# 0.02 X1000 (0.0-0.2); BASO% 0.2 % (0.0-0.8); EOS# 0.17 X1000 (0.0-0.7); EOS% 1.8 % (0.0-10.0); HEMATOCRIT 38.5 % (42.0-52.0); HEMOGLOBIN 12.3 g/dL (14.0-18.0); IMM GRAN# 0.02 X1000 (0.0-0.04); IMM GRAN% 0.2 % (0.0-0.5); LYMPH# 1.14 X1000 (1.2-3.4); LYMPH% 12.2 % (20.5-51.1); MCH 31.9 PG (27-31); MCHC 31.9 g/dL (33-37); MONO# 0.73 X1000 (0.11-0.59); MONO% 7.8 % (1.7-9.3); MPV 11.6 FL (7.4-10.4); NEUT# 7.24 X1000 (1.4-6.5); NEUT% 77.8 % (42.2-75.2); PLT 180 X1000 (130-400); RBC 3.85 XMIL (4.7-6.1); RDW 12.4 % (11.5-14.5); WBC 9.32 X1000 (4.8-10.8)
[2019-12-18 06:44] LABS: AGAP 7; ALB/GLOB RATIO 1.2; ALKALINE PHOSPHATASE 40 U/L (32-122); BUN 14 mg/dL (8-22); CALCIUM 8.3 mg/dL (8.8-10.2); CHLORIDE 107 mmol/L (98-107); COSMO 278; CREATININE 0.8 mg/dL (0.7-1.2); ESTIMATED GFR > 60; GLUCOSE 99 mg/dL (70-104); GOT 12 U/L (10-34); GPT 7 U/L (10-44); MAGNESIUM 2.1 mg/dL (1.5-2.7); POTASSIUM 4.4 mmol/L (3.5-5.1); SODIUM 139 mmol/L (136-145); TCO2 25 mmol/L (25-35); TOTAL PROTEIN 5.6 g/dL (6.3-8.3)
[2019-12-18] MEDS: SYMBICORT 80/4.5 MICROGM INHALER INH SCH (08:52)
[2019-12-18] MEDS ORDERED: LEXISCAN ONE (09:43)
[2019-12-18] MEDS ORDERED: AMINOPHYLLINE ONE (10:05)
[2019-12-18] MEDS: ZOVIRAX PO SCH (11:00)
[2019-12-18] MEDS: MUCINEX PO SCH (11:00)
[2019-12-18] MEDS: ELIQUIS PO SCH (11:00)
[2019-12-18] MEDS: ERYTHROMYCIN OPH OINTMENT RIGHT EYE SCH (11:00)
[2019-12-18] MEDS: MULTAQ PO SCH (11:00)
[2019-12-18] MEDS: FLOMAX PO SCH (11:00)
[2019-12-18] MEDS: PATIENT'S OWN MED OPH SCH ×2 (11:01→11:02)
[2019-12-18 11:29] VITALS: BP 115/75
--- NOTE | 2019-12-18 13:35 | PROGRESS NOTE ---
DATE: 12/18/2019 SUBJECTIVE: The patient continues without chest discomfort or shortness of breath. He is now on room air without dyspnea symptoms. He continues in sinus rhythm without further supraventricular arrhythmias. OBJECTIVE: Blood pressure 115/75, heart rate 79, with ECG monitor showing sinus rhythm. Oxygen saturation 95% on room air. There is no significant jugular venous distention. Auscultation of the chest reveals a few scant expiratory rhonchi. There are no rales. Cardiac Examination: Reveals a regular rate and rhythm without appreciable murmur or gallop. There is no evidence of peripheral edema. Lexiscan sestamibi study performed today demonstrates medium size, fixed severe defect in the basal and mid inferior wall with some hypokinesis of the basal inferior wall. Appearance is consistent with previous inferior infarction. There is no convincing scintigraphic evidence of inducible myocardial ischemia. Left ventricular ejection fraction is 60%. Laboratory Data: Includes a white blood cell count of 9.32, hematocrit 38.5, hemoglobin 12.3, platelet count 180,000. Sodium 139, potassium 4.4, chloride 107, carbon dioxide 25, BUN 14, creatinine 0.7, glucose 99. IMPRESSION: 1. Recent supraventricular tachycardia and associated near-syncope. Patient continues in sinus rhythm on low-dose Multaq. 2. Some tendency for sinus bradycardia and first-degree atrioventricular block. Patient thus far appears to be tolerating low-dose Multaq. 3. Atherosclerotic coronary disease with previous coronary angioplasty/stenting in the past. Patient continues without angina. Lexiscan sestamibi study demonstrates fixed inferior defect consistent with previous infarction and preserved left ventricular systolic function. There is no significant inducible myocardial ischemia. 4. Previous cerebrovascular accident more than 10 years ago. 5. Atrial fibrillation in the past, according to previous records. 6. Chronic obstructive pulmonary disease with some element of bronchitis. 7. Hyperlipidemia. RECOMMENDATIONS: 1. Continue medical management of patient's coronary atherosclerosis. 2. Continue low-dose Multaq, along with Eliquis. 3. Reasonable for patient to be discharged to home. Arrhythmia/electrophysiology followup has been arranged for tomorrow with Dr. Madrid in [place]. I will otherwise see him again in approximately 1 month. cc: Lester Chaidez MD
--- NOTE | 2019-12-18 14:12 | DISCHARGE SUMMARY ---
ADMISSION DATE: 12/16/2019 DISCHARGE DATE: 12/18/2019 HISTORY OF PRESENT ILLNESS: He is a patient of Dr. Kiera Stearns. He presented. He felt short of breath and when he came to the emergency room, he appeared to be in atrial fibrillation or supraventricular tachycardia with rapid rate. PAST MEDICAL HISTORY: 1. COPD, which he denies, but he has a past history of that. 2. Coronary artery disease, status post stents. 3. CVA 10 years ago. 4. Hyperlipidemia. 5. 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 He is on acyclovir. PAST SURGICAL HISTORY: 1. Tracheostomy placement after he had a myocardial infarction and CVA, prolonged hospitalization. This was about 10 years ago, status post 2 coronary stents, status post PEG insertion and removal. 2. 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 3. Cholecystectomy. ADMISSION DIAGNOSIS: Suspected possible aspiration pneumonia. HOSPITAL COURSE: He has trouble swallowing and we actually did a partial barium swallow here. He has had PEG tube in the past. His barium swallow showed severe consistent aspiration, but he does not want to consider PEG tube or anything modified, and does not want to pursue that. He was breathing better. Cardiology saw him and felt he had recurrent supraventricular tachycardia associated with near-syncope and hypotension. He was given a dose of adenosine, additional adenosine, and then it seemed that metoprolol was what helped ,was given a dose of amiodarone. His rhythm stayed in sinus rhythm. He feels better. He is insisting he wants to go home. He is supposed to see cardiology tomorrow in the clinic and so we will discharge him home at his insistence. We will continue his current medication. He is on acyclovir 400 mg p.o. b.i.d. He is on Eliquis 5 mg b.i.d., Lipitor 20 mg at bedtime, Flexeril 10 mg at bedtime, Multaq was started 200 mg p.o. b.i.d., and he is on Flomax 0.4 mg at bedtime. cc: Jermain Lagos MD MTDD
--- NOTE | 2019-12-18 16:20 | GASTROENTEROLOGY CONSULTATION ---
DATE: 12/18/2019 REASON FOR CONSULTATION: Aspiration pneumonia. HISTORY OF PRESENT ILLNESS: This is a 64-year-old, male. He had just been admitted to the hospital on 12/12/2019 for aspiration pneumonia. He came back into the hospital on 12/16/2019 for complaints of lightheadedness, cough, was found to be in supraventricular tachycardia with a right partial bundle branch block. He has been seen by cardiology. He has seen Dr. Chaidez. The patient states he actually has an appointment with Dr. Madrid tomorrow. He is hoping to be discharged tonight to make that appointment. The patient reports a history of esophageal dilation in the past, maybe 5 or 6 years, ago by Dr. Peña. He has also seen Dr. Trujillo in the past and had a PEG tube in the past. Patient had a tracheostomy after a myocardial infarction around 10 years ago and a stroke. He does report having problems getting choked. He has to bring food back up at times. He does report worsening problems with meats. If he does a pureed diet, he is usually able to tolerate his diet. The patient had a modified barium swallow on 12/17/2019 that showed severe consistent aspiration. There was immediate large volume aspiration throughout the exam, both with thin liquids and pureed solids. The patient is not sure when his last colonoscopy was. He currently denies constipation or diarrhea. Denies blood in the stool or black stools. He is not sure if he has a family history of colon cancer. His father had COPD. PAST MEDICAL HISTORY: COPD, coronary artery disease, history of stent placement, history of myocardial infarction, history of CVA, hyperlipidemia, right corneal transplant. PAST SURGICAL HISTORY: Tracheostomy placement and removal after his myocardial infarction and CVA about 10 years ago, coronary artery stents, history of PEG tube placement and removal, corneal transplant of the right eye, history of cholecystectomy. ALLERGIES: No known drug allergies. HOME MEDICATIONS: Acetaminophen 650 mg every 6 hours as needed, Zovirax 400 mg twice a day, Eliquis 5 mg twice a day, Lipitor 20 mg every night, Flexeril 10 mg every night, Multaq 200 mg twice a day, Levaquin 750 mg daily, lisinopril 10 daily, omeprazole 40 mg daily, eyedrops as directed, Flomax 0.4 mg every day. SOCIAL HISTORY: History of tobacco use. No reported alcohol use. No tobacco use now. He lives alone. He is retired. FAMILY HISTORY: Unsure if he has a family history of colon cancer. Father had COPD. REVIEW OF SYSTEMS: Per history of present illness. PHYSICAL EXAMINATION: Vital Signs: Temperature 97.9 degrees, pulse 79, respirations 17, blood pressure 115/75. General: The patient is awake and alert. No acute distress. Other physical examination unremarkable. LABORATORY DATA: Hematology: WBC 9.32, hemoglobin 12.3, hematocrit 38.5, MCV 100.0, platelets 180,000. Chemistry: Sodium 139, potassium 4.4, chloride 107, CO2 of 25, BUN 14, creatinine 0.8, glucose 99, calcium 8.3, magnesium 2.1. Total bilirubin 0.50, AST 12, ALT 7, alkaline phosphatase 40. IMAGING: A modified barium swallow showed severe consistent aspiration with immediate large volume aspiration throughout the examination, occurring both with thin liquids and pureed consistencies. ASSESSMENT AND PLAN: 1. Recent supraventricular tachycardia and near-syncope. Seen by cardiology. 2. Coronary artery disease, history of stent placement. 3. History of cerebrovascular accident. 4. History of myocardial infarction. 5. History of percutaneous endoscopic gastrostomy tube placement and removal. 6. Dysphagia with history of esophageal dilation in the past. 7. Aspiration pneumonia. PLAN: Continue PPI. Continue strict aspiration precautions. Follow a pureed diet only for now. The patient is being discharged to have a followup with the name plate stamper, Dr. Madrid, tomorrow. We will recommend to proceed with EGD and possible esophageal dilation as an outpatient. The patient will be notified to schedule the procedure. Will need cardiology clearance first. Further plans will be made as needed. Patient was also seen by Dr. Cruz. Patient voices understanding of this plan. Thank you for this consultation. Dictated by INES Lemus for Breezy Cruz MD cc: INES Andino MD
--- NOTE | 2019-12-19 10:05 | Diag Imaging Result Document ---
PROCEDURE NAME: MYOCARDIAL PERF SCAN, STR/REST - 12/18/2019 PROCEDURE: Lexiscan sestamibi. SUMMARY: The patient was administered 10.7 mCi of technetium-99m sestamibi, after which resting cardiac images were obtained. Patient was subsequently administered Lexiscan 0.4 mg intravenously, after which the heart rate went from 67 beats per minute to 92 beats per minute. The blood pressure went from 105/75 to 78/52. With Lexiscan, the patient denied chest discomfort. Following the administration of Lexiscan, the patient was administered 31.8 mCi of technetium 99-m sestamibi, after which the patient subsequently received aminophylline 125 mg intravenously given decrease in blood pressure. The patient subsequently had gated stress cardiac images obtained. Baseline ECG demonstrated sinus rhythm with borderline first-degree AV block, incomplete right bundle branch block and inferior infarct of undetermined age. With Lexiscan, there were no diagnostic ST-segment changes. Occasional premature ventricular complex was observed. SPECT images were reconstructed in the short, horizontal and vertical long axis. Review of these images demonstrated a medium size, severe defect in the basal and mid inferolateral wall left ventricle on stress images, which appears unchanged on resting images. No significant reversibility is evident. Gated images demonstrate relative hypokinesis of the basal inferolateral region and a left ventricular ejection fraction of 60%. CONCLUSIONS: 1. Adequate response to Lexiscan. 2. Clinically negative for chest pain. 3. Electrocardiographically, there were no diagnostic ST-segment changes on electrocardiogram following the administration of Lexiscan. 4. Lexiscan sestamibi images demonstrate fixed, severe medium size defect in the basal and mid inferolateral wall consistent with previous infarction. There is no convincing scintigraphic evidence of inducible myocardial ischemia. Calculated left ventricular ejection fraction 60%. cc: Lester Chaidez MD
== END 2019-12-18 15:10 | disposition home or self-care (01) | DRG 178 ==
LOC: SUPCPDRO → ED 14:40 → EDIPHOLD 22:19 → 2N 12-17 08:48
PROVIDERS: ATTEND Emergency Medicine